=== PATIENT | male | born 1990 | race African-American/Black ===

== ENCOUNTER 2016-11-03 02:32 | Emergency (ER) | payer SELFPAY ==
[~2016-11-03] VITALS: Ht 180.3 cm; Wt 69.2 kg
[2016-11-03 02:32] VITALS: TEMP 37.2; Ht 180.3 cm; Wt 69.2 kg
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
[2016-11-03] MEDS ORDERED: XYLOCAINE 1%/SOD BICARB 20 ML VIAL INFIL ONE (04:00)
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
[2016-11-03] MEDS ORDERED: CEPH500C2 PO (05:37)
[2016-11-03] MEDS ORDERED: CEPHALEXIN MONOHYDRATE 250 MG CAP PO ONE (05:45)
[2016-11-03 06:09] VITALS: BP 133/85; PULSE 72; O2SAT 98
== END 2016-11-03 06:14 | disposition home or self-care (01) ==
LOC: EDBD 02:32 → C.EDA 02:33
DX: S81.011A Laceration without foreign body, right knee, initial encounter (principal); Y35.893A Legal intervention involving other specified means, suspect injured, initial encounter; F10.129 Alcohol abuse with intoxication, unspecified; Y90.6 Blood alcohol level of 120-199 mg/100 ml

== ENCOUNTER → 2017-03-07 | Outpatient (CLI) | payer OTHER ==
[~2017-03-07] MED LIST: CEPH500C2 PO
== END | disposition home or self-care (01) ==
LOC: C.LAB 04:06
DX: Z02.83 Encounter for blood-alcohol and blood-drug test (principal)